=== PATIENT | female | born 1955 | race Asian ===

== ENCOUNTER → 2017-03-14 | Outpatient (CLI) | payer BC ==
--- NOTE | 2017-03-15 14:36 | MAMMOGRAPHY REPORT ---
BILATERAL DIGITAL SCREENING MAMMOGRAM TOMOSYNTHESIS WITH CAD: 03/14/2017 CLINICAL HISTORY: Routine screening. Patient has no complaints. TECHNIQUE: Breast tomosynthesis in addition to standard 2D mammography was performed. Current study was also evaluated with a Computer Aided Detection (CAD) system. COMPARISON: No prior exams were available for comparison. BREAST COMPOSITION: The tissue of both breasts is heterogeneously dense, which may obscure small mas ses. FINDINGS: There is a nodular 8 mm asymmetry seen within the left lateral breast on the cc view, whic h may represent normal fibroglandular tissue or postsurgical changes, however, spot compression tomos ynthesis views and possible breast ultrasound are recommended for further evaluation given no priors available for comparison. Additionally, there is a subtle 3 cm asymmetry seen within the right super ior breast on the MLO tomosynthesis images, possibly projecting medially on the cc view, which may re present normal fibroglandular tissue although spot compression tomosynthesis views and possible ultra sound are recommended. The remainder of both breasts demonstrate no suspicious masses, calcifications, or areas of mobile solutions architect ural distortion. Scattered bilateral benign-appearing calcifications are noted. There are post surg ical changes in the left breast, with a linear scar marker denoting a scar on the left upper inner br east. IMPRESSION: ACR BI-RADS CATEGORY 0: INCOMPLETE EVALUATION: NEED ADDITIONAL IMAGING EVALUATION Bilateral breast asymmetries, for which additional imaging evaluation is recommended. The patient wi ll be called to schedule an appointment. Approximately 10% of breast cancers are not detected with mammography. A negative mammographic report should not delay biopsy if a clinically suggestive mass is present. Rema Colon M.D. ah/:03/14/2017 15:20:45 Sanitary Plumber: Aylin YEH(R)(M)(BD), [facility] letter sent: Addl Imaging 0 BI-RADS Code: ACR BI-RADS Category 0: Incomplete Evaluation: Need Additional Imaging Evaluation
== END | disposition home or self-care (01) ==
LOC: C.MAMM 14:41
PROVIDERS: ATTEND Family Medicine
DX: Z12.31 Encounter for screening mammogram for malignant neoplasm of breast (principal); R92.8 Other abnormal and inconclusive findings on diagnostic imaging of breast